=== PATIENT | female | born 1980 | race Caucasian/White ===

== ENCOUNTER 2016-12-05 10:40 | Inpatient (IN) | payer BC ==
[2016-12-05] VITALS (40 sets, daily range): BP systolic 94–147; BP diastolic 53–86; PULSE 63–141; TEMP 97.8–98.6
[~2016-12-05] VITALS: Ht 172.7 cm; Wt 72.3 kg
[2016-12-05] MEDS ORDERED: PRENATAL1 TA7 PO (11:36)
[2016-12-05 11:52] LABS: BASO % 0.3 % (0.0-2.0); EOS # 0.1 (0.0-0.7); EOS % 1.4 % (0-4.0); GRAN # 6.5 (1.4-6.5); GRAN % 66.4 % (42.2-75.2); LYMPH # 2.5 (1.2-3.4); LYMPH % 25.5 % (20.0-51.0); MEAN CELL VOLUME 83 fl (80.0-100.0); MEAN CORPUSCULAR HGB CONC 33 g/dl (33.0-37.0); MEAN PLATELET VOLUME 14.1 fl (7.4-10.4); MONO # 0.5 (0.1-0.6); MONO % 5.2 % (1.7-9.3); PLATELET COUNT 143 K/mm3 (130-400); RED BLOOD COUNT 3.82 M/mm3 (4.10-5.30); REDCELL DISTRIBUTION WIDTH-CV 13.2 % (11.5-14.5); WHITE BLOOD COUNT 9.8 K/mm3 (4.8-10.8)
[2016-12-05 11:56] LABS: HEMATOCRIT 31.7 % (37.0-47.0); HEMOGLOBIN 10.6 g/dl (12.5-16.0); MEAN CORPUSCULAR HEMOGLOBIN 28 pg (27.0-31.0)
[2016-12-05 12:10] LABS: PROTHROMBIN TIME 11.4 SECONDS (9.7-12.8)
[2016-12-05 12:50] LABS: PARTIAL THROMBOPLASTIN TIME 30.7 SECONDS (26.0-37.0)
[2016-12-05] MEDS ORDERED: HEPARIN SOD5000 U/ML IJ (18:27)
[2016-12-06 00:15] VITALS: BP 125/73; PULSE 115; TEMP 98.4
[2016-12-06 04:45] VITALS: BP 114/67; PULSE 102; TEMP 98.2
[2016-12-06 08:00] VITALS: BP 139/80; PULSE 111; TEMP 97.6
[2016-12-06 16:00] VITALS: BP 108/62; PULSE 113; TEMP 98.1
[2016-12-06 18:50] VITALS: BP 119/74; PULSE 118; TEMP 98.8
[2016-12-07 07:45] VITALS: BP 122/79; PULSE 110; TEMP 98.6
[2016-12-07] MEDS ORDERED: IBU800 M1 PO (09:00)
[2016-12-07] MEDS ORDERED: LOVENOX 4040 MG/0.4 SQ (09:00)
[2016-12-07] MEDS ORDERED: PERCOCET 325 MG1 TA2 PO (09:00)
== END 2016-12-07 13:30 | disposition home or self-care (01) | DRG 775 ==
LOC: LDRO 10:40 → LDR 10:41 → LDRO 11:36 → OB 11:37 → LDR 11:37 → OB 21:20
PROVIDERS: Nurse Anesthetist, Certified Registered; Obstetrics & Gynecology
PROC: 10E0XZZ Delivery of Products of Conception, External Approach (ICD-10-PCS; principal; 2016-12-05)
PROC: 0KQM0ZZ Repair Perineum Muscle, Open Approach (ICD-10-PCS; 2016-12-05)
DX: O70.1 Second degree perineal laceration during delivery (principal); O09.513 Supervision of elderly primigravida, third trimester; O75.89 Other specified complications of labor and delivery; Z86.718 Personal history of other venous thrombosis and embolism; Z79.02 Long term (current) use of antithrombotics/antiplatelets; Z3A.39 39 weeks gestation of pregnancy; Z37.0 Single live birth
CPT/HCPCS: J1650; J2210; J2590; J2795; J7120

== ENCOUNTER → 2020-07-21 | Outpatient (CLI) | payer BC ==
[~2020-07-21] MED LIST: HEPARIN SOD5000 U/ML IJ; IBU800 M1 PO; LOVENOX 4040 MG/0.4 SQ; PERCOCET 325 MG1 TA2 PO; PRENATAL1 TA7 PO
== END ==
LOC: MC.RAD 11:30
DX: Z12.31 Encounter for screening mammogram for malignant neoplasm of breast (principal)

== ENCOUNTER → 2021-12-09 | Outpatient (CLI) | payer BC | LOC: MC.RAD 14:30 | DX: Z12.31 Encounter for screening mammogram for malignant neoplasm of breast (principal) ==